=== PATIENT | female | born 1945 | race Caucasian/White ===

== ENCOUNTER 2016-06-22 23:45 | Inpatient (IN) | payer MEDICARE ==
[~2016-06-22] VITALS: Ht 160 cm; Wt 76.5 kg
[2016-06-22] MEDS ORDERED: WARF1TAB PO (23:57)
[2016-06-22] MEDS ORDERED: DILT120T3 PO (23:57)
[2016-06-22] MEDS ORDERED: HYDROcodone/APAP 5/325 TABLET ONE (23:59)
[2016-06-23] MEDS ORDERED: HYDROcodone/APAP 5/325 TABLET PO ONE
[2016-06-23] MEDS ORDERED: SODIUM CHLORIDE FLUSH 10ML SYR IVF ONE (01:30)
[2016-06-23 01:42] LABS: BLOOD UREA NITROGEN 20 mg/dL (7-18)
[2016-06-23] MEDS ORDERED: PHYTONADIONE 10 MG/ML, 1ML IM ONE (02:00)
[2016-06-23 02:18] LABS: HEMOGLOBIN 12.4 g/dL (11.7-16.4)
[2016-06-23 02:19] LABS: DIFF TOTAL CELLS COUNTED 100 CELL DIFF
[2016-06-23] MEDS ORDERED: POTASSIUM CHLORIDE 40 MEQ in SODIUM CHLORIDE 0.9% 500 ML IV ONE (02:30)
[2016-06-23 02:38] LABS: VERIFY COUNTS? YES
[2016-06-23 02:39] LABS: ANISOCYTOSIS 1+; HYPOCHROMIA 1+; POLYCHROMASIA 1+
[2016-06-23] MEDS ORDERED: NS + 20MEQ KCL 1,000 ML IV SCH (02:41)
[2016-06-23] MEDS ORDERED: ONDANSETRON 2MG/ML, 2ML IVP PRN (03:00)
[2016-06-23] MEDS ORDERED: LABETALOL 5MG/ML, 20ML IV PRN (03:00)
[2016-06-23] MEDS ORDERED: PHYTONADIONE 10 MG/ML, 1ML ONE (03:31)
[2016-06-23 04:54] LABS: BLOOD UREA NITROGEN 16 mg/dL (7-18)
[2016-06-23 05:27] VITALS: BP 141/92
[2016-06-23 06:00] VITALS: BP 138/89
[2016-06-23] MEDS: DILTIAZEM 120 MG TABLET PO SCH ×2 (09:38→20:23)
[2016-06-23] MEDS: ACETAMINOPHEN 325 MG TABLET PO PRN (11:25)
[2016-06-23] MEDS ORDERED: POTASSIUM CHLORIDE 20 MEQ TAB.ER.PRT PO ONE (11:30)
[2016-06-23 14:10] VITALS: BP 152/84
[2016-06-23 20:18] VITALS: BP 130/74
[2016-06-24 02:11] VITALS: BP 136/83
[2016-06-24] MEDS: ACETAMINOPHEN 325 MG TABLET PO PRN (04:38)
[2016-06-24 04:58] LABS: HEMOGLOBIN 12.5 g/dL (11.7-16.4)
[2016-06-24 05:04] LABS: BLOOD UREA NITROGEN 17 mg/dL (7-18)
[2016-06-24 05:09] LABS: DIFF TOTAL CELLS COUNTED 100 CELL DIFF
[2016-06-24 05:13] LABS: ANISOCYTOSIS 1+; VERIFY COUNTS? YES
[2016-06-24 05:15] LABS: LARGE PLATELETS 1+
[2016-06-24 07:38] VITALS: BP 131/78
[2016-06-24] MEDS: DILTIAZEM 120 MG TABLET PO SCH (08:19)
[2016-06-24 13:33] VITALS: BP 131/76
== END 2016-06-24 14:37 | disposition home or self-care (01) | DRG 86 ==
LOC: ED 06-23 01:06 → EDIP 06-23 01:58 → CCU 06-23 05:20 → 4EST 06-23 13:59 → DCLOUNGE 06-24 14:04
DX: S06.5X0A Traumatic subdural hemorrhage without loss of consciousness, initial encounter (principal); D68.69 Other thrombophilia; E44.0 Moderate protein-calorie malnutrition; S00.93XA Contusion of unspecified part of head, initial encounter; I48.2 Chronic atrial fibrillation; W18.30XA Fall on same level, unspecified, initial encounter; E87.6 Hypokalemia; E11.9 Type 2 diabetes mellitus without complications; I10 Essential (primary) hypertension; Z86.718 Personal history of other venous thrombosis and embolism; Z86.711 Personal history of pulmonary embolism; Z83.3 Family history of diabetes mellitus; Z88.1 Allergy status to other antibiotic agents; Y93.89 Activity, other specified; Z79.01 Long term (current) use of anticoagulants; Y92.89 Other specified places as the place of occurrence of the external cause; Z68.29 Body mass index [BMI] 29.0-29.9, adult; T45.515A Adverse effect of anticoagulants, initial encounter
CPT/HCPCS: 36415; 70450; 70486; 80048; 82040; 83735; 85025; 85610; 85730; 87081; 93005; 96365; 96372; J3430; J3480; J7040